=== PATIENT | female | born 1990 | race Hispanic/Latino ===

== ENCOUNTER 2025-06-09 05:53 | Inpatient (IN) | payer BC ==
[2025-06-09] MEDS: Oxytocin 30 units/NS 500 ML 500 ML IV SCH ×2 (08:45→15:14)
[2025-06-09] MEDS ORDERED: HYDROcodone/Acetaminophen 5/325 mg Tablet PO PRN ×4 (08:50→17:26)
[2025-06-09] MEDS ORDERED: hydrALAZINE 20 MG/ML VIAL SLOW IVP PRN ×2 (08:50→17:26)
[2025-06-09] MEDS ORDERED: Ondansetron PF 4 MG/2 ML Vial IVP PRN ×2 (08:50→17:26)
[2025-06-09 08:52] VITALS: BMI 32.5
[2025-06-09 09:43] LABS: Syphilis Antibody Index 0.08 S/CO (<1.00 Non-Reactive)
[2025-06-09 09:44] LABS: Hep B Surf Ag - L&D Non-Reactive S/CO (NonReactive)
[2025-06-09 11:14] LABS: Hematocrit 29.6 % (34.9-44.5); Hemoglobin 9.4 g/dL (12.0-15.5); Mean Corpuscular Hemoglobin 26.1 pg (27.0-33.0); Mean Corpuscular Volume 82.2 fL (81.6-98.3); Platelet Count 294 10x3/uL (150-450); Red Blood Cell (RBC) Count 3.60 10x6/uL (3.90-5.03); White Blood Cell (WBC) Count 7.45 10x3/uL (3.5-10.5)
[2025-06-09] MEDS: Lidocaine 1% (PF) 30 ML VIAL SC PRN (15:08)
[2025-06-09] MEDS: Ibuprofen 800 MG TAB PO PRN (16:26)
[2025-06-09] MEDS ORDERED: Oxytocin 30 units/NS 500 ML 500 ML IV SCH (17:26)
[2025-06-09] MEDS ORDERED: Lanolin Ointment 7 GM TUBE TOP PRN (17:26)
[2025-06-09] MEDS ORDERED: Milk Of Magnesia 30 ML UDCUP PO PRN (17:26)
[2025-06-09] MEDS ORDERED: Bisacodyl 10 MG SUPP PR PRN (17:26)
[2025-06-09] MEDS ORDERED: Preparation H Ointment 28 GM TUBE PR PRN (17:26)
[2025-06-09] MEDS: Oxytocin 30 units/NS 500 ML 500 ML ONE (19:42)
[2025-06-09] MEDS: Boostrix 0.5 ML (Tdap) VIAL (>/=7 yrs of age) IM ONE (19:44)
[2025-06-09] MEDS: Ferrous Sulfate 325 MG TAB PO SCH (19:49)
[2025-06-09] MEDS: Benzocaine-Menthol 82.5 ML CAN TOP PRN (19:49)
[2025-06-10] MEDS: Ibuprofen 800 MG TAB PO SCH (00:54)
[2025-06-10] MEDS: Ferrous Sulfate 325 MG TAB PO SCH (08:36)
[2025-06-10 12:24] VITALS: BP 108/61; TEMP 98.1
== END 2025-06-10 16:20 | disposition home or self-care (01) | DRG 807 ==
LOC: CSHLD 05:53 → CSHPP 17:45
PROVIDERS: ADMIT Obstetrics & Gynecology; ATTEND Obstetrics & Gynecology
PROC: 10E0XZZ Delivery of Products of Conception, External Approach (ICD-10-PCS; principal; 2025-06-09)
PROC: 4A1HXCZ Monitoring of Products of Conception, Cardiac Rate, External Approach (ICD-10-PCS; 2025-06-09)
PROC: 0UQMXZZ Repair Vulva, External Approach (ICD-10-PCS; 2025-06-09)
DX: O42.92 Full-term premature rupture of membranes, unspecified as to length of time between rupture and onset of labor (principal); Z37.0 Single live birth; O71.82 Other specified trauma to perineum and vulva; Z3A.39 39 weeks gestation of pregnancy
CPT/HCPCS: 36415; 85027; 86780; 86850; 86900; 86901; 87340; J2590